=== PATIENT | female | born 1945 | race Caucasian/White ===

== ENCOUNTER → 2017-05-07 | Outpatient (CLI) | payer OTHER, MEDICARE ==
[~2017-05-07] MED LIST: ARIMIDEX; ARIMIDEX PO; CAL-CITRATE PL1 EACH; CAL-CITRATE PL1 EACH PO; CENTRUM TABLET1 TAB OR; ENOXAPARIN150 MG/1 M SQ; LOTENSIN; OMEPRAZOLE; PERCOCET 5-3251 EACH PO; PREVACID 30MG C30 M1 PO; SYNTHROID; SYNTHROID100 MCG PO
== END ==
LOC: ULTRA 09:24
DX: E01.0 Iodine-deficiency related diffuse (endemic) goiter (principal)

== ENCOUNTER 2017-10-13 10:01 | Emergency (ER) | payer OTHER, MEDICARE ==
[~2017-10-13] VITALS: Ht 162.6 cm; Wt 104.3 kg
[2017-10-13] MEDS ORDERED: AUGMENTIN 875-1 EACH PO (11:06)
== END 2017-10-13 12:29 | disposition home or self-care (01) ==
LOC: ER 10:01
DX: S61.217A Laceration without foreign body of left little finger without damage to nail, initial encounter (principal); K21.9 Gastro-esophageal reflux disease without esophagitis; I10 Essential (primary) hypertension; E03.9 Hypothyroidism, unspecified; Z90.12 Acquired absence of left breast and nipple; W26.8XXA Contact with other sharp object(s), not elsewhere classified, initial encounter; Y93.89 Activity, other specified; Y92.89 Other specified places as the place of occurrence of the external cause; Y99.8 Other external cause status